=== PATIENT | female | born 1955 | race Caucasian/White ===

== ENCOUNTER 2020-03-07 12:51 | Emergency (ER) | payer MEDICARE, SELFPAY ==
--- NOTE | ~2020-03-07 | XR_ITS ---
XR elbow RT min 3V 03/07/2020 13:26 INDICATION: Right elbow pain PROCEDURE: 4 views right elbow COMPARISON: No prior studies for comparison. FINDINGS: Fracture, dislocation or subluxation is not identified. The soft tissues appear within norm al limits. No foreign bodies are identified. IMPRESSION: 1: NO ACUTE BONE OR JOINT ABNORMALITY IDENTIFIED. Reviewed, dictated and finalized at location A.
[2020-03-07 13:03] VITALS: BP 116/59; PULSE 79; RESP 16; TEMP 36.2; O2SAT 99
--- NOTE | 2020-03-07 13:10 | ED.GENADULT ---
HPI - General Adult General Chief complaint: Extremity Injury, Upper Stated complaint: right elbow injury Time Seen by Provider: 03/07/20 13:10 Source: patient and RN notes reviewed Mode of arrival: ambulatory Limitations: no limitations History of Present Illness HPI narrative: This is a 64 years old female presents to the office for an evaluation of elbow injury 4-5days ago. She accidentally tripped over a table balls on the ground and landed on her right elbow. Complained of pain immediately that shoot up to her right shoulder and neck. Pain has gotten worse for the past couple day especially when she try to move her right arm. She is right-hand dominant. Denies any other injury. She did not try ice or take any medication [id number] for her pain. She only cleaned the wound and apply Band-Aid on it. TD is unknown Related Data Home Medications Medication Instructions Recorded Confirmed aspirin 03/07/20 atorvastatin 03/07/20 carvedilol 03/07/20 escitalopram oxalate mg 03/07/20 furosemide 03/07/20 gabapentin 03/07/20 [id number] [Creon] PO 03/07/20 meloxicam 03/07/20 metformin mg 03/07/20 spironolactone 03/07/20 Allergies Allergy/AdvReac Type Severity Reaction Status Date / Time morphine Allergy Severe Swelling Verified 03/01/14 16:30 erythromycin base Allergy Intermediate Verified 03/01/14 16:30 Quinolones Allergy Intermediate Verified 03/01/14 16:30 Sulfa (Sulfonamide Allergy Intermediate Swelling Verified 03/01/14 16:30 Antibiotics) Contrast Media Allergy Intermediate Hives / Uncoded 03/01/14 16:30 Red Face Review of Systems Review of Systems: Narrative: CONSTITUTIONAL: Denies feeling ill CARDIOVASCULAR: Denies chest pain RESPIRATORY: Denies dyspnea GASTROINTESTINAL: Denies abdominal pain, nausea, vomiting SKIN: Reports skin abrasion on her right elbow MUSCULOSKELETAL: Reports right elbow pain with bruising. NEUROLOGIC: Denies lightheaded prior to accident All other systems reviewed are negative, except as documented in HPI. COUNTS INCLUDE 234 BEDS AT THE [facility] Past Medical History Medical History (Updated 03/07/20 @ 13:20 by BENJI Messina) Anxiety and depression CHF (congestive heart failure) COPD (chronic obstructive pulmonary disease) Diabetes mellitus, type II Surgical History Surgical History (Updated 03/07/20 @ 13:18 by BENJI Messina) H/O section History of lumbar fusion L4-L5 History of right knee joint replacement Hx of cholecystectomy Comments At time of signature, I agree with nursing past medical, surgical, social and family history. There is no relevant family history pertinent to the presenting complaint. Exam Narrative: Exam Narrative: GENERAL: This is a well-nourished, well-developed patient, in no apparent distress. CARDIOVASCULAR: Regular rate and rhythm without murmurs, gallops, or rubs. RESPIRATORY: Clear to auscultation. Breath sounds equal bilaterally. No wheezes, rales, or rhonchi. GASTROINTESTINAL: Abdomen soft, non-tender, nondistended. Bowel sounds are active. No hepato-splenomegaly, or palpable masses. No guarding. SKIN: right posterior proximal head noted small skin avulsion ~.5mm without active bleeding or drainage or sign of infection. NEURO: awake, alert, and oriented to person, place and time. There were no obvious focal neurologic abnormalities. Steady gait EXTREMITIES: The elbow is swollen but not deformed on inspection. The range of motion is limited in all directions because of the pain. There is tenderness over the head of the radius. Supination and pronation of the forearm is not painful. There is no swelling over the olecranon process. Skin abrasion noted with slight ecchymosis and tenderness to palpation. Haylie Coma Scale Eye Opening: Spontaneous 4 [place] Coma Scale Motor: Obeys Commands 6 Haylie Coma Scale Verbal: Oriented 5 Course Vital Signs Vital signs: Vital Signs Temperature 97.1 F L 06/20
[2020-03-07] MEDS: TETANUS,DIPHTHERIA,AC PERTUSSIS ADULT (0.5 ML) BOOSTRIX IM (13:57)
== END 2020-03-07 14:08 | disposition home or self-care (01) ==
PROVIDERS: Emergency Provider Nurse Practitioner; PCP Family Medicine
DX: S51.001A Unspecified open wound of right elbow, initial encounter (principal); Z79.82 Long term (current) use of aspirin; Z79.84 Long term (current) use of oral hypoglycemic drugs; Z23 Encounter for immunization; F41.8 Other specified anxiety disorders; I50.9 Heart failure, unspecified; E11.9 Type 2 diabetes mellitus without complications; J44.9 Chronic obstructive pulmonary disease, unspecified; Z96.651 Presence of right artificial knee joint; E78.00 Pure hypercholesterolemia, unspecified; W18.09XA Striking against other object with subsequent fall, initial encounter; Z98.1 Arthrodesis status
CPT/HCPCS: 73080; 90471; 90715; 99203; G0463

== ENCOUNTER 2020-06-25 13:40 | Emergency (ER) | payer MEDICARE, SELFPAY ==
--- NOTE | ~2020-06-25 | XR_ITS ---
EXAMINATION: XR elbow RT min 3V EXAM DATE: 06/25/2020 14:05 INDICATION: No known recent injury provided at this time. Pain of the right elbow. TECHNIQUE: Right elbow frontal, lateral with flexion, and oblique projections obtained and reviewed. Comparison is made to prior examination from 03/07/2020. FINDINGS: Right elbow anterior humeral line intact. 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 There are no acute fractures or dislocations identified. There is no subcutaneous gas. The soft t issue is unremarkable. There are no radiopaque foreign bodies. IMPRESSION: Mild right elbow osteoarthritis. Reviewed, dictated and finalized at location B.
[2020-06-25 13:46] VITALS: BP 122/74; PULSE 80; RESP 18; TEMP 36.7; O2SAT 99
[2020-06-25 13:55] VITALS: BP 122/74; PULSE 80; RESP 18; TEMP 36.7; O2SAT 99
--- NOTE | 2020-06-25 14:16 | ED.UPPEXIN ---
HPI - Extremity Injury (Upper) General Chief Complaint: Extremity Injury, Upper Stated Complaint: pain from elbow down to fingers Time Seen by Provider: 06/25/20 14:10 Source: patient Mode of arrival: ambulatory Limitations: no limitations History of Present Illness HPI narrative: Natasha Klein is a 64 yo female with a PMH of HTN, high cholesterol, diaibetes who comes to express care with complaints of right elbow pain that shoots up into the shoulder and then today started shooting down into the wrist. Started 3 days ago. Is gotten gradually worse. Denies any kind of injury. Pain is worse with bending of elbow posteriorly but is able to lift arm overhead and reach forward Related Data Home Medications Medication Instructions Recorded Confirmed aspirin 325 mg PO DAILY 03/07/20 06/25/20 atorvastatin 40 mg PO DAILY 03/07/20 06/25/20 carvedilol 6.25 mg PO DAILY 03/07/20 06/25/20 escitalopram oxalate 10 mg PO DAILY 03/07/20 06/25/20 furosemide 40 mg PO DAILY 03/07/20 06/25/20 gabapentin 300 mg PO TID 03/07/20 06/25/20 meloxicam 7.5 mg PO DAILY 03/07/20 06/25/20 metformin 500 mg PO BID 03/07/20 06/25/20 spironolactone 25 mg PO DAILY 03/07/20 06/25/20 Allergies Allergy/AdvReac Type Severity Reaction Status Date / Time morphine Allergy Severe Swelling Verified 06/25/20 13:55 erythromycin base Allergy Intermediate Rash Verified 06/25/20 13:55 Quinolones Allergy Intermediate Rash Verified 06/25/20 13:55 Sulfa (Sulfonamide Allergy Intermediate Swelling Verified 06/25/20 13:55 Antibiotics) Contrast Media Allergy Intermediate Hives / Uncoded 03/01/14 16:30 Red Face Review of Systems Review of Systems: Narrative: CONSTITUTIONAL: Denies fever, chills, sweats. EYES: Denies visual changes, redness, discharge. ENT: Denies rhinorrhea, congestion, sore throat, otalgia. CARDIOVASCULAR: Denies chest pain, palpitations, edema. RESPIRATORY: Denies dyspnea, wheezing, cough GASTROINTESTINAL: Denies abdominal pain, nausea, vomiting, diarrhea. GENITOURINARY: Denies dysuria, hematuria, abnormal discharge SKIN: Denies rash or itching. NEUROLOGIC: Denies numbness, or focal weakness. PSYCHIATRIC: Denies anxiety or depression. Right elbow pain with movement PMFSH Past Medical History Medical History Anxiety and depression CHF (congestive heart failure) COPD (chronic obstructive pulmonary disease) Diabetes mellitus, type II High cholesterol Surgical History Surgical History H/O section History of lumbar fusion L4-L5 History of right knee joint replacement Hx of cholecystectomy Family History Family History Other Hypertension Social History Social History Smoking status: Never smoker Alcohol intake: current Comments At time of signature, I agree with nursing past medical, surgical, social and family history. There is no relevant family history pertinent to the presenting complaint. Exam Narrative: Exam Narrative: GENERAL: This is a well-nourished, well-developed patient, in mild distress. HEAD: normocephalic, atraumatic. EYES: Sclera clear/white. Vision is grossly intact. EARS: External ears normal, Hearing grossly intact. NOSE: External nose normal without nasal discharge, nares without redness, no rhinorrhea. THROAT: Mucous membranes moist, NECK: Neck supple, non-tender CARDIOVASCULAR: Regular rate and rhythm without murmurs, gallops, or rubs. RESPIRATORY: Clear to auscultation. Breath sounds equal bilaterally. No wheezes, rales, or rhonchi. GASTROINTESTINAL: Abdomen soft, non-tender, SKIN: warm, intact with no suspicious lesions or rash, good texture and turgor. NEURO: awake, alert, and oriented to person, place and time. There were no obvious focal neurologic abnormalities. Natali
== END 2020-06-25 14:29 | disposition home or self-care (01) ==
PROVIDERS: Emergency Provider Nurse Practitioner; PCP Family Medicine
DX: M70.21 Olecranon bursitis, right elbow (principal); Z96.651 Presence of right artificial knee joint; F41.9 Anxiety disorder, unspecified; F32.9 Major depressive disorder, single episode, unspecified; I11.0 Hypertensive heart disease with heart failure; I50.9 Heart failure, unspecified; J44.9 Chronic obstructive pulmonary disease, unspecified; E11.9 Type 2 diabetes mellitus without complications; E78.00 Pure hypercholesterolemia, unspecified
CPT/HCPCS: 73080; 99213; G0463

== ENCOUNTER 2023-05-11 12:19 | Emergency (ER) | payer MEDICARE, MEDICAID, SELFPAY ==
--- NOTE | 2023-05-11 12:55 | ED.GENADULT ---
HPI - General Adult General Chief complaint: Weakness Stated complaint: Blood Pressure Problem Source: patient and RN notes reviewed History of Present Illness HPI narrative: 67 yo female presents to urgent care with complaints of generalized weakness and intermittent lightheadedness. Patient states this has been going on for the last 3-4 months. Patient reports vomiting approximately once every other day. Patient denies any vomiting today. Patient is also reporting forgetfulness which is also been going on for last 3-4 months. Patient saw her doctor proximally 3 months ago and was placed on Creon with minimal relief with vomiting. Denies any diarrhea, fevers, chills, chest pain, shortness of breath, pain. Denies any dysuria. Denies any falls or loss of consciousness. Related Data Home Medications Medication Instructions Recorded Confirmed aspirin 325 mg tablet 325 mg PO DAILY 03/07/20 05/11/23 atorvastatin 80 mg tablet 40 mg PO DAILY 03/07/20 05/11/23 carvedilol 6.25 mg tablet 6.25 mg PO DAILY 03/07/20 05/11/23 escitalopram oxalate 10 mg tablet 10 mg PO DAILY 03/07/20 05/11/23 furosemide 40 mg tablet 40 mg PO DAILY 03/07/20 05/11/23 gabapentin 100 mg capsule 300 mg PO TID 03/07/20 05/11/23 meloxicam 7.5 mg tablet 7.5 mg PO DAILY 03/07/20 05/11/23 metformin 500 mg tablet 500 mg PO BID 03/07/20 05/11/23 spironolactone 25 mg tablet 25 mg PO DAILY 03/07/20 05/11/23 Allergies Allergy/AdvReac Type Severity Reaction Status Date / Time morphine Allergy Severe Swelling Verified 05/11/23 12:41 erythromycin base Allergy Intermediate Rash Verified 05/11/23 12:41 Quinolones Allergy Intermediate Rash Verified 05/11/23 12:41 Sulfa (Sulfonamide Allergy Intermediate Swelling Verified 05/11/23 12:41 Antibiotics) Contrast Media Allergy Intermediate Hives / Uncoded 05/11/23 12:41 Red Face Review of Systems Review of Systems: Pertinent positives and pertinent negatives per HPI. [facility] Past Medical History Medical History Anxiety and depression CHF (congestive heart failure) COPD (chronic obstructive pulmonary disease) Diabetes mellitus, type II High cholesterol Surgical History Surgical History H/O section History of lumbar fusion L4-L5 History of right knee joint replacement Hx of cholecystectomy Family History Family History Other Hypertension Social History Social History Smoking status: Never smoker Alcohol intake: current Comments At the time of my signature, I reviewed and agree with the nursing past medical, surgical, social, and family history. There is no relevant family history pertinent to the patient complaint. Exam Narrative: GENERAL: This is a well-nourished, well-developed patient, in no apparent distress. HEAD: normocephalic, atraumatic. EYES: Sclera clear/white. Vision is grossly intact. EARS: External ears normal, auditory canals clear and without drainage. Hearing grossly intact. NOSE: External nose normal with no obvious nasal discharge, nares without redness, no rhinorrhea. THROAT: Mucous membranes moist, posterior pharynx clear. NECK: Neck supple, non-tender without lymphadenopathy, masses or thyromegaly. CARDIOVASCULAR: Regular rate and rhythm without murmurs, gallops, or rubs. RESPIRATORY: Clear to auscultation. Breath sounds equal bilaterally. No wheezes, rales, or rhonchi. GASTROINTESTINAL: Abdomen soft, non-tender, nondistended. Bowel sounds are active. No hepato-splenomegaly, or palpable masses. No guarding. SKIN: warm, intact with no suspicious lesions or rash, good texture and turgor. NEURO: awake, alert, and oriented to person, place and time. There were no obvious focal neurologic abnormalities. EXTREMITIES: No clubbing, cyanosis, or edema. No shandra
[2023-05-11 13:02] LABS: Glucose Point of Care 80 mg/dl (65-105)
--- NOTE | 2023-05-11 13:09 | ECG_ITS ---
Measurements Intervals [place] Rate: 69 P: 45 AL: 169 QRS: -18 QRSD: 98 T: -10 QT: 397 QTc: 427 Interpretive Statements SINUS RHYTHM LOW QRS VOLTAGE IN THE LIMB LEADS BORDERLINE ECG INTERPRETATION BASED ON A DEFAULT AGE OF 40 YEARS NO PREVIOUS ECG AVAILABLE FOR COMPARISON Electronically Signed On 05-16-2023 11:47:03 CDT by Sebastien Toscano M.D.
== END 2023-05-11 13:15 | disposition home or self-care (01) ==
PROVIDERS: Emergency Provider Nurse Practitioner Family
DX: Z71.1 Person with feared health complaint in whom no diagnosis is made (principal); F41.9 Anxiety disorder, unspecified; F32.A Depression, unspecified; J44.9 Chronic obstructive pulmonary disease, unspecified; E11.9 Type 2 diabetes mellitus without complications; E78.00 Pure hypercholesterolemia, unspecified; I50.9 Heart failure, unspecified; Z96.651 Presence of right artificial knee joint; Z79.82 Long term (current) use of aspirin
CPT/HCPCS: 82948; 93005; 99212; G0463